=== PATIENT | male | born 1970 | race Caucasian/White ===

== ENCOUNTER 2017-06-01 08:31 | Emergency (ER) | payer OTHER ==
[~2017-06-01] VITALS: Ht 182.9 cm; Wt 77.1 kg
[~2017-06-01 08:31] MED LIST: ALBU90OI INH; ASPI81CH PO; Bactrim Ds Tab1 EACH PO; CEPH500 PO; CIPR500 PO; CLAR500 PO; CLIN150 PO; CODACE30 PO; Cleocin HCl150 MG PO; DIPH50; GUAI100SY; HYDACE25S PR; HYDACE5 PO; HYDCOR2.5C PR; HYDGUAL120 PO; IBUP600 PO; NAPR500 PO; OXYACE5T PO; PRED10 PO; PRED20 PO; PROM25 PO; Prednisone20 MG PO; RXCLIN PO; RXNAPNA550 PO; RXOXYACE PO; SULTRIDS PO; TRAM50 PO; TRIA80TC TOP; [UNRECOGNIZED DRUG - OTHER]; [UNRECOGNIZED DRUG - REMARK]
[2017-06-01] MEDS ORDERED: NYST237S MT (09:53)
[2017-06-01] MEDS ORDERED: CLIN300 PO (09:53)
== END 2017-06-01 10:00 | disposition home or self-care (01) ==
LOC: ER 08:31
DX: J02.0 Streptococcal pharyngitis (principal); F17.210 Nicotine dependence, cigarettes, uncomplicated; Z88.0 Allergy status to penicillin
CPT/HCPCS: 71046; 87430; 99283; J1100

== ENCOUNTER 2017-09-12 19:59 | Emergency (ER) | payer OTHER ==
[~2017-09-12] VITALS: Ht 182.9 cm; Wt 79.4 kg
[~2017-09-12 19:59] MED LIST changes: +CLIN300 PO; +NYST237S MT
== END 2017-09-12 21:08 | disposition home or self-care (01) ==
LOC: ER 19:59
DX: S71.112A Laceration without foreign body, left thigh, initial encounter (principal); F17.210 Nicotine dependence, cigarettes, uncomplicated; Z88.0 Allergy status to penicillin; W26.8XXA Contact with other sharp object(s), not elsewhere classified, initial encounter

== ENCOUNTER 2018-08-08 18:08 | Emergency (ER) | payer OTHER ==
[~2018-08-08] VITALS: Ht 182.9 cm; Wt 77.1 kg
[~2018-08-08 18:08] MED LIST changes: +ACET325 PO; +BENZ100A PO; +Bactrim 400-801 EACH PO
[2018-08-08] MEDS ORDERED: Bactrim Ds Tab1 EACH PO (20:38)
[2018-08-08] MEDS ORDERED: Keflex500 MG PO (20:38)
== END 2018-08-08 20:53 | disposition home or self-care (01) ==
LOC: ER 18:08
DX: L02.512 Cutaneous abscess of left hand (principal); L03.012 Cellulitis of left finger; Z88.0 Allergy status to penicillin; Z79.899 Other long term (current) drug therapy; F17.210 Nicotine dependence, cigarettes, uncomplicated
CPT/HCPCS: 96365; 96375; 99283-25; A9270; J0696; J1885

== ENCOUNTER 2018-08-29 00:34 | Emergency (ER) | payer OTHER ==
[~2018-08-29] VITALS: Ht 182.9 cm; Wt 70.3 kg
[~2018-08-29 00:34] MED LIST changes: +Keflex500 MG PO
[2018-08-29 01:05] LABS: BASOPHILS ABSOLUTE AUTO 0.03 K/mm3 (0.00-0.23); BASOPHILS PERCENT AUTO 0 % (0-2); EOSINOPHILS ABSOLUTE AUTO 0.29 K/mm3 (0.00-0.68); EOSINOPHILS PERCENT AUTO 2 % (0-6); Hematocrit 42.8 % (37.0-53.0); Hemoglobin 14.2 g/dL (13.5-17.5); IMMATURE GRAN ABSOLUTE AUTO 0.03 K/mm3 (0.00-0.10); IMMATURE GRAN PERCENT AUTO 0 % (0-1); LYMPHOCYTES PERCENT AUTO 20 % (21-46); MONOCYTES ABSOLUTE AUTO 0.86 K/mm3 (0.16-1.47); MONOCYTES PERCENT AUTO 7 % (4-13); Mean Corpuscular HGB 30.8 pg (26.0-34.0); Mean Corpuscular HGB Conc 33.2 g/dL (31.5-36.5); Mean Corpuscular Volume 93 fL (80-100); Mean Platelet Volume 10.3 fL (9.1-12.4); NEUTROPHILS ABSOLUTE AUTO 8.25 K/mm3 (1.96-9.15); NEUTROPHILS PERCENT AUTO 70 % (41-73); Platelet Count 317 K/mm3 (150-400); RDW Coefficient Variation 13.1 % (11.7-14.2); RDW Standard Deviation 44.4 fL (35.1-46.3); Red Blood Cell Count 4.61 M/mm3 (4.30-5.90); White Blood Cell Count 11.86 K/mm3 (4.00-11.30)
[2018-08-29 01:25] LABS: Alanine Aminotransfer (ALT/SGP 23 U/L (12-78); Albumin, Blood 3.5 g/dL (3.4-5.0); Albumin/Globulin Ratio 1.2 (0.8-1.8); Alk Phos 63 U/L (50-136); Anion Gap 4 mmol/L (6-16); Aspartate Aminotrans (AST/SGOT 20 U/L (12-37); Bilirubin, Total 0.5 mg/dL (0.1-1.0); Blood Urea Nitrogen 17 mg/dL (8-24); Bun/Creatinine Ratio 18.6 (12.0-20.0); CO2, Blood 28 mmol/L (21-32); Calcium, Blood 8.3 mg/dL (8.5-10.1); Chloride, Blood 108 mmol/L (98-108); Creatinine, Blood 0.91 mg/dL (0.60-1.20); Glomerular Filtration Rate >60 (60-); Glucose, Blood 130 mg/dL (70-99); Potassium, Blood 4.1 mmol/L (3.5-5.5); Sodium, Blood 140 mmol/L (136-145); Total Protein, Blood 6.5 g/dL (6.4-8.2); Troponin I <0.015 ng/mL (0.000-0.040)
== END 2018-08-29 05:25 | disposition home or self-care (01) ==
LOC: ER 00:34
PROVIDERS: Physician Assistant
DX: R07.9 Chest pain, unspecified (principal); R06.02 Shortness of breath; R11.0 Nausea; F17.210 Nicotine dependence, cigarettes, uncomplicated; Z88.8 Allergy status to other drugs, medicaments and biological substances; Z79.899 Other long term (current) drug therapy
CPT/HCPCS: 36415; 71046; 80053; 83690; 84484; 85025; 93005; 93010; 99285-25

== ENCOUNTER 2018-11-22 20:20 | Emergency (ER) | payer OTHER ==
[~2018-11-22] VITALS: Ht 182.9 cm; Wt 72.6 kg
[2018-11-22 20:53] LABS: BASOPHILS ABSOLUTE AUTO 0.04 K/mm3 (0.00-0.23); BASOPHILS PERCENT AUTO 0 % (0-2); EOSINOPHILS ABSOLUTE AUTO 0.25 K/mm3 (0.00-0.68); EOSINOPHILS PERCENT AUTO 2 % (0-6); Hematocrit 44.1 % (37.0-53.0); IMMATURE GRAN ABSOLUTE AUTO 0.07 K/mm3 (0.00-0.10); IMMATURE GRAN PERCENT AUTO 1 % (0-1); LYMPHOCYTES ABSOLUTE AUTO 2.43 K/mm3 (0.84-5.20); LYMPHOCYTES PERCENT AUTO 17 % (21-46); MONOCYTES ABSOLUTE AUTO 1.07 K/mm3 (0.16-1.47); MONOCYTES PERCENT AUTO 7 % (4-13); Mean Corpuscular HGB 29.7 pg (26.0-34.0); Mean Corpuscular HGB Conc 31.7 g/dL (31.5-36.5); Mean Corpuscular Volume 93 fL (80-100); Mean Platelet Volume 10.2 fL (9.1-12.4); NEUTROPHILS ABSOLUTE AUTO 10.78 K/mm3 (1.96-9.15); NEUTROPHILS PERCENT AUTO 74 % (41-73); Platelet Count 437 K/mm3 (150-400); RDW Standard Deviation 44.9 fL (35.1-46.3); Red Blood Cell Count 4.72 M/mm3 (4.30-5.90); White Blood Cell Count 14.64 K/mm3 (4.00-11.30)
[2018-11-22 21:07] LABS: Alanine Aminotransfer (ALT/SGP 35 U/L (12-78); Albumin/Globulin Ratio 0.7 (0.8-1.8); Alk Phos 114 U/L (50-136); Anion Gap 7 mmol/L (6-16); Aspartate Aminotrans (AST/SGOT 21 U/L (12-37); Bilirubin, Total 0.2 mg/dL (0.1-1.0); Blood Urea Nitrogen 18 mg/dL (8-24); Bun/Creatinine Ratio 16.8 (12.0-20.0); CO2, Blood 27 mmol/L (21-32); Calcium, Blood 8.6 mg/dL (8.5-10.1); Chloride, Blood 106 mmol/L (98-108); Creatinine, Blood 1.07 mg/dL (0.60-1.20); Globulin, Blood 4.3 g/dL (2.2-4.0); Glomerular Filtration Rate >60 (60-); Glucose, Blood 85 mg/dL (70-99); Potassium, Blood 4.4 mmol/L (3.5-5.5); Sodium, Blood 140 mmol/L (136-145); Total Protein, Blood 7.3 g/dL (6.4-8.2); Troponin I <0.015 ng/mL (0.000-0.040)
[2018-11-23] MEDS ORDERED: Bactrim Ds Tab1 EACH PO (00:14)
[2018-11-23] MEDS ORDERED: Protonix40 MG PO (00:15)
== END 2018-11-23 00:36 | disposition home or self-care (01) ==
LOC: ER 20:20
PROVIDERS: Physician Assistant
DX: K29.70 Gastritis, unspecified, without bleeding (principal); Z88.0 Allergy status to penicillin; F17.210 Nicotine dependence, cigarettes, uncomplicated
CPT/HCPCS: 36415; 71046; 76705; 80053; 83690; 83880; 84484; 85025; 93005; 93010; 96374; 96375; 99284-25; J1200; J1630; J2405; J3010

== ENCOUNTER 2018-12-30 17:29 | Inpatient (IN) | payer OTHER ==
[~2018-12-30] VITALS: Ht 182.9 cm; Wt 73.9 kg
[~2018-12-30 17:29] MED LIST changes: +Protonix40 MG PO
[2018-12-30 18:56] LABS: BASOPHILS ABSOLUTE AUTO 0.05 K/mm3 (0.00-0.23); BASOPHILS PERCENT AUTO 0 % (0-2); EOSINOPHILS ABSOLUTE AUTO 0.21 K/mm3 (0.00-0.68); EOSINOPHILS PERCENT AUTO 1 % (0-6); Hematocrit 39.6 % (37.0-53.0); Hemoglobin 13.4 g/dL (13.5-17.5); IMMATURE GRAN ABSOLUTE AUTO 0.22 K/mm3 (0.00-0.10); IMMATURE GRAN PERCENT AUTO 1 % (0-1); LYMPHOCYTES ABSOLUTE AUTO 2.41 K/mm3 (0.84-5.20); LYMPHOCYTES PERCENT AUTO 14 % (21-46); MONOCYTES ABSOLUTE AUTO 1.03 K/mm3 (0.16-1.47); MONOCYTES PERCENT AUTO 6 % (4-13); Mean Corpuscular HGB 29.4 pg (26.0-34.0); Mean Corpuscular HGB Conc 33.8 g/dL (31.5-36.5); Mean Corpuscular Volume 87 fL (80-100); Mean Platelet Volume 9.9 fL (9.1-12.4); NEUTROPHILS ABSOLUTE AUTO 13.01 K/mm3 (1.96-9.15); NEUTROPHILS PERCENT AUTO 77 % (41-73); Platelet Count 409 K/mm3 (150-400); RDW Coefficient Variation 13.3 % (11.7-14.2); RDW Standard Deviation 42.2 fL (35.1-46.3); Red Blood Cell Count 4.56 M/mm3 (4.30-5.90); White Blood Cell Count 16.93 K/mm3 (4.00-11.30)
[2018-12-30 19:18] LABS: Alanine Aminotransfer (ALT/SGP 31 U/L (12-78); Albumin, Blood 3.5 g/dL (3.4-5.0); Albumin/Globulin Ratio 1.2 (0.8-1.8); Alk Phos 84 U/L (50-136); Anion Gap 6 mmol/L (6-16); Aspartate Aminotrans (AST/SGOT 25 U/L (12-37); Bilirubin, Total 0.6 mg/dL (0.1-1.0); Blood Urea Nitrogen 19 mg/dL (8-24); CO2, Blood 25 mmol/L (21-32); Calcium, Blood 8.7 mg/dL (8.5-10.1); Chloride, Blood 110 mmol/L (98-108); Creatinine, Blood 0.95 mg/dL (0.60-1.20); Glomerular Filtration Rate >60 (60-); Glucose, Blood 83 mg/dL (70-99); Potassium, Blood 3.6 mmol/L (3.5-5.5); Sodium, Blood 141 mmol/L (136-145); Total Protein, Blood 6.5 g/dL (6.4-8.2)
--- NOTE | 2018-12-31 07:37 | NUR ---
SHIFT SUMMARY PT NEW ADMIT THIS SHIFT. AAOX4. DISCOMFORT CONTROLLED WITH 0.5MG IV DILAUDID X1 SINCE ADMISSION TO FLOOR. ZOFRAN GIVEN WITH DILAUDID FOR NAUSEA, NO EMESIS. RLE WARM/PINK, DENIES N/T, MOVES TOES WELL. ORIENTED TO ROOM + CALL LIGHT USE. RESTING WELL AT THIS TIME WITH SIGNIFICANT OTHER AT BEDSIDE, CALL LIGHT IN REACH. REPORT TO DAY SHIFT RN.
--- NOTE | 2018-12-31 14:51 | NUR ---
PT WORKING WITH PHYSICAL THERAPY AT THIS TIME.
[2018-12-31] MEDS ORDERED: HYDR1TAB94 PO (16:11)
--- NOTE | 2018-12-31 16:39 | NUR ---
DISCHARGE PT EDUCATED ON AND RECEIVED PRINTED DC INSTRUCTIONS AND VERBALIZED AN UNDERSTANDING. HARD RX FOR NORCO AND CRUTCHES GIVEN TO PT. IV DC'D, PT SIG OTHER TOOK ALL PERSONAL BELONGINGS HOME. PT WAITING FOR [facility] [employer] [facility] EXPECTED TO ARRIVE AT APPROX 1700 TO TAKE PT HOME.
--- NOTE | 2018-12-31 16:55 | NUR ---
[facility] HERE TO [employer]PERVIS[employer] PT.
== END 2018-12-31 16:56 | disposition home or self-care (01) | DRG 536 ==
LOC: ER 17:29 → SURS 20:29 → ER 20:29 → SURS 23:25
PROVIDERS: Emergency Medicine; ADMIT Surgery
DX: S32.591A Other specified fracture of right pubis, initial encounter for closed fracture (principal); V19.49XA Pedal cycle driver injured in collision with other motor vehicles in traffic accident, initial encounter; F17.200 Nicotine dependence, unspecified, uncomplicated; Z86.14 Personal history of Methicillin resistant Staphylococcus aureus infection; Z89.421 Acquired absence of other right toe(s)
CPT/HCPCS: 74177; 80053; 85025; 96374-59; 96375; 96376; 97116; 97161; 97530; 99285-25; A9270-GY; J1170; J2405; Q9967

== ENCOUNTER 2019-06-29 12:53 | Emergency (ER) | payer OTHER ==
[~2019-06-29] VITALS: Ht 162.6 cm; Wt 61.2 kg
[~2019-06-29 12:53] MED LIST changes: +HYDR1TAB94 PO
== END 2019-06-29 15:06 | disposition home or self-care (01) ==
LOC: ER 12:53
DX: S61.012A Laceration without foreign body of left thumb without damage to nail, initial encounter (principal); F17.210 Nicotine dependence, cigarettes, uncomplicated; Z88.0 Allergy status to penicillin; W26.0XXA Contact with knife, initial encounter
CPT/HCPCS: 12001; 99282-25

== ENCOUNTER 2021-03-14 08:41 | Emergency (ER) | payer OTHER ==
[~2021-03-14] VITALS: Ht 180.3 cm; Wt 79.4 kg
[2021-03-14] MEDS ORDERED: NAPR500 PO (09:32)
== END 2021-03-14 09:56 | disposition home or self-care (01) ==
LOC: ER 08:41
DX: S90.31XA Contusion of right foot, initial encounter (principal); F17.210 Nicotine dependence, cigarettes, uncomplicated; Z88.0 Allergy status to penicillin; X58.XXXA Exposure to other specified factors, initial encounter
CPT/HCPCS: 73620; 96374; 99283-25; J1885

== ENCOUNTER → 2024-06-27 | Outpatient (CLI) | payer OTHER ==
[2024-06-27 15:43] LABS: BASOPHILS ABSOLUTE AUTO 0.04 K/mm3 (0.00-0.23); BASOPHILS PERCENT AUTO 0 % (0-2); EOSINOPHILS ABSOLUTE AUTO 0.33 K/mm3 (0.00-0.68); EOSINOPHILS PERCENT AUTO 3 % (0-6); Hematocrit 40.9 % (37.0-53.0); Hemoglobin 13.9 g/dL (13.5-17.5); IMMATURE GRAN ABSOLUTE AUTO 0.05 K/mm3 (0.00-0.10); IMMATURE GRAN PERCENT AUTO 0 % (0-1); LYMPHOCYTES ABSOLUTE AUTO 3.56 K/mm3 (0.84-5.20); LYMPHOCYTES PERCENT AUTO 32 % (21-46); MONOCYTES ABSOLUTE AUTO 0.61 K/mm3 (0.16-1.47); MONOCYTES PERCENT AUTO 6 % (4-13); Mean Corpuscular HGB 30.2 pg (26.0-34.0); Mean Corpuscular Volume 89 fL (80-100); Mean Platelet Volume 10.7 fL (9.1-12.4); NEUTROPHILS ABSOLUTE AUTO 6.54 K/mm3 (1.96-9.15); NEUTROPHILS PERCENT AUTO 59 % (41-73); Platelet Count 280 K/mm3 (150-400); RDW Coefficient Variation 13.8 % (11.7-14.2); RDW Standard Deviation 44.9 fL (35.1-46.3); Red Blood Cell Count 4.61 M/mm3 (4.30-5.90); White Blood Cell Count 11.13 K/mm3 (4.00-11.30)
[2024-06-27 15:54] LABS: Albumin, Blood 4.1 g/dL (3.4-5.0); Albumin/Globulin Ratio 1.2 (0.8-1.8); Bilirubin, Total 0.4 mg/dL (0.1-1.0); Bun/Creatinine Ratio 10.2 (12.0-20.0); Creatinine, Blood 0.98 mg/dL (0.60-1.20); Globulin, Blood 3.5 g/dL (2.2-4.0); Potassium, Blood 3.9 mmol/L (3.5-5.5); Total Protein, Blood 7.6 g/dL (6.4-8.2)
== END ==
LOC: LAB SHORT 15:38 → LAB 15:38
PROVIDERS: Physician Assistant
DX: R10.9 Unspecified abdominal pain (principal)
CPT/HCPCS: 80053; 83690; 85025